=== PATIENT | male | born 1965 | race African-American/Black ===

== ENCOUNTER 2022-07-29 06:28 | Emergency (ER) | payer MEDICAID ==
[~2022-07-29] VITALS: Ht 175.3 cm; Wt 82.0 kg
[~2022-07-29 06:28] MED LIST: DOXY100C5 MT
[2022-07-29 06:36] VITALS: BP 124/82
[2022-07-29] MEDS ORDERED: CEFTRIAXONE SODIUM 1 G/VIAL IM ONE (07:00)
[2022-07-29] MEDS ORDERED: DOXYCYCLINE HYCLATE 100MG CAPSULE PO ONE (07:00)
[2022-07-29 07:14] LABS: CLARITY URINE CLEAR (CLEAR); COLOR URINE YELLOW (YELLOW); KETONES URINE NEGATIVE (NEGATIVE); LEUKOCYTE ESTERASE URINE TRACE (NEGATIVE); NITRITE URINE NEGATIVE (NEGATIVE); OCCULT BLOOD URINE NEGATIVE (NEGATIVE); PH URINE 5.5 (4.5-8.0); PROTEIN URINE NEGATIVE (NEGATIVE); SPECIFIC GRAVITY URINE 1.017 (1.005-1.030)
[2022-07-29] MEDS ORDERED: DOXY100T2 PO (07:30)
[2022-07-31 07:08] LABS: NEISSERIA GONORRHOEAE NAA Negative (Negative)
== END 2022-07-29 08:01 | disposition home or self-care (01) ==
LOC: ER 06:28
DX: B04 Monkeypox (principal)
CPT/HCPCS: 81003; 87491; 87591; 87593; 96372; 99283; J0696

== ENCOUNTER 2023-10-27 01:10 | Emergency (ER) | payer MEDICAID ==
[~2023-10-27] VITALS: Ht 177.8 cm; Wt 82.0 kg
[~2023-10-27 01:10] MED LIST changes: +DOXY100T2 PO
[2023-10-27 01:20] VITALS: BP 144/93; O2SAT 99
[2023-10-27 02:14] LABS: CLARITY URINE TURBID (CLEAR); COLOR URINE YELLOW (YELLOW); GLUCOSE URINE NEGATIVE (NEGATIVE); KETONES URINE NEGATIVE (NEGATIVE); LEUKOCYTE ESTERASE URINE 2+ (NEGATIVE); NITRITE URINE NEGATIVE (NEGATIVE); OCCULT BLOOD URINE 1+ (NEGATIVE); PH URINE 5.5 (4.5-8.0); PROTEIN URINE 1+ (NEGATIVE); SPECIFIC GRAVITY URINE 1.036 (1.005-1.030)
[2023-10-27 02:25] LABS: BACTERIA URINE 1+; SQUAMOUS EPITHELIAL CELL URINE 1+ /lpf (RARE/1+); WBC URINE TNTC /hpf (0-2)
[2023-10-27] MEDS ORDERED: DOXY-456 MT (03:06)
[2023-10-27] MEDS ORDERED: CEFTRIAXONE SODIUM 500 MG/VIAL IM ONE (03:15)
[2023-10-27] MEDS ORDERED: DOXYCYCLINE HYCLATE 100MG CAPSULE PO ONE (03:15)
[2023-10-27 03:41] VITALS: PULSE 83; RESP 16; TEMP 98.7
[2023-10-29 04:08] LABS: CHLAMYDIA TRACHOMATIS NAA Negative (Negative); NEISSERIA GONORRHOEAE NAA Positive (Negative)
== END 2023-10-27 03:44 | disposition home or self-care (01) ==
LOC: ER 01:10
DX: R30.0 Dysuria (principal)
CPT/HCPCS: 87491; 87591; 81003; 87086; 96372; 99283; J0696; Z7610 ×2

== ENCOUNTER 2024-01-17 22:59 | Emergency (ER) | payer MEDICAID ==
[~2024-01-17] VITALS: Ht 175.3 cm; Wt 85.0 kg
[~2024-01-17 22:59] MED LIST changes: +DOXY-456 MT
[2024-01-17 23:36] VITALS: RESP 14; O2SAT 99
[2024-01-18 02:12] LABS: CLARITY URINE CLEAR (CLEAR); COLOR URINE DARK YELLOW (YELLOW); GLUCOSE URINE NEGATIVE (NEGATIVE); KETONES URINE TRACE (NEGATIVE); LEUKOCYTE ESTERASE URINE TRACE (NEGATIVE); NITRITE URINE NEGATIVE (NEGATIVE); OCCULT BLOOD URINE NEGATIVE (NEGATIVE); PH URINE 5.5 (4.5-8.0); PROTEIN URINE 1+ (NEGATIVE); SPECIFIC GRAVITY URINE 1.029 (1.005-1.030)
[2024-01-18] MEDS ORDERED: LEVO-65 MT (02:47)
[2024-01-18] MEDS: CEFTRIAXONE SODIUM 500MG VIAL IM ONE (03:28)
[2024-01-18] MEDS: LIDOCAINE HCL/PF 1% 10 MG/ML 5ML VIAL INFIL ONE (03:28)
[2024-01-18 03:30] VITALS: BP 129/68; PULSE 70; TEMP 98.7
[2024-01-18 03:49] LABS: SQUAMOUS EPITHELIAL CELL URINE FEW /lpf (RARE/1+)
[2024-01-18 03:53] LABS: RBC URINE 0-2 /hpf (0-2)
[2024-01-18 03:55] LABS: BACTERIA URINE NONE SEEN
[2024-01-20 04:08] LABS: CHLAMYDIA TRACHOMATIS NAA Negative (Negative); NEISSERIA GONORRHOEAE NAA Negative (Negative)
== END 2024-01-18 03:32 | disposition home or self-care (01) ==
LOC: ER 23:34
DX: N45.3 Epididymo-orchitis (principal)
CPT/HCPCS: 99284; 93976; 87491; 87591; 81003; 87086; 76870; 96372; J0696; J3490

== ENCOUNTER 2024-07-27 23:42 | Emergency (ER) | payer MEDICAID ==
[~2024-07-27] VITALS: Ht 177.8 cm; Wt 82.0 kg
[~2024-07-27 23:42] MED LIST changes: -DOXY-456 MT; +DOXY100C74 MT; +LEVO-65 MT
[2024-07-27 23:48] VITALS: BP 119/69; TEMP 98.4; O2SAT 100
[2024-07-27 23:50] VITALS: PULSE 80; RESP 16; O2SAT 99
[2024-07-28] MEDS ORDERED: OFLO5DRO4 RIGHT EAR (00:02)
== END 2024-07-28 00:45 | disposition home or self-care (01) ==
LOC: ER 23:42
DX: H60.92 Unspecified otitis externa, left ear (principal); Z79.899 Other long term (current) drug therapy; Z98.890 Other specified postprocedural states
CPT/HCPCS: 99283

== ENCOUNTER 2024-09-18 03:36 | Emergency (ER) | payer MEDICAID ==
[~2024-09-18] VITALS: Ht 177.8 cm; Wt 82.0 kg
[~2024-09-18 03:36] MED LIST changes: +OFLO5DRO4 RIGHT EAR
[2024-09-18 03:46] VITALS: BP 154/92; PULSE 80; TEMP 98.8; O2SAT 100
[2024-09-18 05:05] VITALS: RESP 18
[2024-09-18] MEDS: CEFTRIAXONE SODIUM 500MG VIAL IM ONE (05:05)
[2024-09-18] MEDS: AZITHROMYCIN 500 MG TABLET PO ONE (05:05)
== END 2024-09-18 05:56 | disposition home or self-care (01) ==
LOC: ER 03:36
DX: Z11.3 Encounter for screening for infections with a predominantly sexual mode of transmission (principal); R30.0 Dysuria; Z79.899 Other long term (current) drug therapy
CPT/HCPCS: 99283; 96372; J0696